=== PATIENT | male | born 1990 | race Caucasian/White ===

== ENCOUNTER 2019-07-11 20:34 | Emergency (ER) | payer OTHER ==
--- NOTE | 2019-07-11 21:39 | RAD ---
Exam: XR Ankle Lt 3 View STANDARD HISTORY: Injury after twisting left ankle. COMPARISON: None FINDINGS: The ankle mortise is congruent. There is a transverse and mildly and slightly displaced fracture involving the proximal asp ect of the left fifth metatarsal. No additional fracture is seen, and there is no dislocation identified. IMPRESSION: Mildly and displaced fracture involving the proximal left fifth metatarsal. No additional f racture is seen.
--- NOTE | 2019-07-11 21:46 | RAD ---
Exam: XR Foot Lt 3 View STANDARD HISTORY: Twisted left ankle. Left foot and ankle pain. COMPARISON: None FINDINGS: There is a transverse mildly and displaced fracture involving the proximal aspect of the le ft fifth metatarsal. There is also a minimally comminuted and obliquely oriented fracture involving the distal aspect of the left fourth metatarsal. No additional fracture is seen, and there is no disl ocation. The Lisfranc joint is normally aligned.There is mild subcutaneous soft tissue swelling seen at the lateral aspect of the foot at the level of the fifth metatarsal fracture. IMPRESSION: Mildly and slightly displaced fractures involving the left fourth and fifth metatarsals.
== END 2019-07-11 22:20 | disposition home or self-care (01) ==
LOC: ERS 20:34
DX: S92.342A Displaced fracture of fourth metatarsal bone, left foot, initial encounter for closed fracture (principal); S92.352A Displaced fracture of fifth metatarsal bone, left foot, initial encounter for closed fracture; F41.9 Anxiety disorder, unspecified; W17.89XA Other fall from one level to another, initial encounter
CPT/HCPCS: 29515